=== PATIENT | female | born 1945 | race African-American/Black ===

== ENCOUNTER 2017-05-14 05:51 | Inpatient (IN) | payer OTHER ==
[2017-05-01 09:14] LABS: URINE BILIRUBIN NEGATIVE (Negative); URINE BLOOD TRACE (Negative); URINE COLOR YELLOW; URINE GLUCOSE-RANDOM* NEGATIVE (Negative); URINE KETONES NEGATIVE (Negative); URINE LEUKOCYTES-REFLEX NEGATIVE (Negative); URINE PROTEIN (DIPSTICK) NEGATIVE (Negative); URINE SPECIFIC GRAVITY 1.015 (1.003-1.035); URINE UROBILINOGEN 0.2 E.U./dl (0.2-1.0)
[2017-05-01 09:18] LABS: HEMATOCRIT 44.1 % (37.0-47.0); HEMOGLOBIN 15.2 gm/dL (12.0-15.0); MCH 31.4 pg (26.0-34.0); MCHC 34.5 g/dL (28.0-37.0); MCV 91.1 fL (80.0-100.0); RBC 4.84 mil/uL (4.20-5.00); RDW 13.4 % (10.5-14.5)
[2017-05-01 09:27] LABS: ALBUMIN 3.9 g/dL (3.4-5.0); CALCIUM 9.6 mg/dL (8.5-10.1); CREATININE 0.8 mg/dL (0.6-1.0); POTASSIUM 3.9 mmol/L (3.5-5.1)
[2017-05-01 09:30] LABS: PROTIME 9.9 Seconds (9.3-11.4)
[2017-05-14] VITALS (11 sets, daily range): BP systolic 100–129; BP diastolic 46–83
[~2017-05-14] VITALS: Ht 157.5 cm; Wt 70.3 kg
--- NOTE | ~2017-05-14 | O ---
[facility] [place] [address] OPERATIVE REPORT Name: ANGELA VERGARA Room #: 150-4 ADM IN M.R.#: [id number] Admission: 05/14/17 Attend Phys: Fish Gusman MD Discharge: Date of : 49 Report #: [id number] THIS REPORT FOR: //name// CC: Fish Tran MD DATE OF OPERATION: 05/14/2017. PREOPERATIVE DIAGNOSIS: Right hip degenerative joint disease, severe. POSTOPERATIVE DIAGNOSIS: Right hip degenerative joint disease, severe. PROCEDURE: Right total hip arthroplasty. SURGEON: Dr. Fish Gusman. WOODWORKING MACHINE OFFBEARER: JORDON Patel. ANESTHETIC: General. INDICATIONS: See hospital history and physical. IMPLANTS UTILIZED: Shellie hip system Secur-Fit Max stem number size 7. We used a size +0, 32 outer diameter ceramic head. We used a Tritanium solid back shell with a Trident X3 elevated rim insert. DESCRIPTION OF PROCEDURE: After adequate general anesthesia had been obtained, the patient was placed in lateral decubitus position, right hip up. Right hip and lower extremity was prepped and draped in the usual meticulous sterile fashion. Posterolateral incision was made, subQ divided sharply. Hemostasis obtained with electrocautery. The IT band gluteal fascia was divided. This layer was retracted with a Charnley retractor. Hip was gently rotated. The piriformis and external rotators were detached at their insertion, tagged and retracted posteriorly. Capsular incision was made and the capsule flap was elevated posteriorly. Hip was dislocated. Soft tissue removed from the base of neck. Starter awl placed at the base of neck and advanced to the canal. Canal was sequentially reamed to a size 7. Neck osteotomy performed. At this time, attention was directed to the acetabulum, was circumferentially exposed. Labrum was excised and acetabulum was sequentially reamed to a size 48. We got a good press fit with a 48 trial, so we reamed to a 49, irrigated copiously and placed a 50 shell in the appropriate orientation. Cap screw was placed. The liner was placed, elevated the portion posteriorly. Attention was redirected to the femur, sequentially broached to a size 7, a good torsional stability was obtained. We trialed reduced her with a +0 neck length [facility] [address] [place] [address] OPERATIVE REPORT Name: ANGELA VERGARA Angy Room #: 150-4 [facility] IN M.R.#: [id number] Admission: 05/14/17 Attend Phys: Fish Gusman MD Discharge: Date of : 49 Report #: [id number] and good reproduction for her leg lengths and excellent stability parameters, the hip was then dislocated. The trial components were removed. The wound was irrigated copiously. The stem implant into place and the head, impacted in place and the hip was reduced. We then repaired the capsule and external rotators to the trochanter by placing drill hole in trochanter and tying them over a bone bridge. We then irrigated copiously, placed drains deep and superficial and IT band and gluteal fascia layer closed with combination of interrupted [id number]-[id number] #1 Vicryl as well as running #1 Tevdek. SubQ closed in layers with 2-0 Monocryl, skin closed with sarthak. Sterile compressive dressing was applied. By: [id number] Fish Gusman MD /nt
--- NOTE | ~2017-05-14 | EKG ---
[address] [address] ELECTROCARDIOGRAM REPORT Name: ANGELA VERGARA Room #: PRE IN [facility]#: [id number] Admission: Attend Phys: Fish Gusman MD Discharge: Date of : 49 Report #: [id number] THIS REPORT FOR: //name// [facility] Test Date: 2017-05-01 Test Time: 09:23:13 Pat Name: ANGELA VERGARA Department: Room: Gender: F First Aid Director: lindsey hudson : 1945 Requested By: Fish Gusman Order Number: [id number] MD: Cirilo Garrett Measurements Intervals [place] Rate: 61 P: 44 W[place]: 205 QRS: 23 QRSD: 92 T: -11 QT: 403 QTc: 406 Interpretive Statements Sinus rhythm Nonspecific ST segment abnormality No previous ECG available for comparison Electronically Signed On 05-01-2017 18:28:36 CDT by Cirilo Garrett [email or web address] <ELECTRONICALLY SIGNED> By: Cirilo Garrett MD, [facility] 05/01/17 1828 0923 2 Cirilo Garrett MD, [facility] /EPI
[~2017-05-14 05:51] MED LIST: ALEVE220 MG PO; APAP500 PO; ATENOLOL 100MG100 MG PO; ATIVAN1 MG PO; ATROVENT HFA14 GM INH; BENAZEPRIL HCL40 MG PO; HYDROCHLOROTHIAZIDE PORT; IBUPROFEN 200200 M1 PO; KLOR-CON 1010 MEQ PO; NORVASC10 MG PO; OMEPRAZOLE20 M1 PO; SIMVASTATIN40 MG PO; VITAMIN D250000 UNIT PO
[2017-05-15] VITALS: BP 113/51
[2017-05-15 04:45] VITALS: BP 112/54
[2017-05-15 05:23] LABS: HEMOGLOBIN 12.8 gm/dL (12.0-15.0); MCH 30.7 pg (26.0-34.0); MCHC 33.5 g/dL (28.0-37.0); MCV 91.7 fL (80.0-100.0); RBC 4.15 mil/uL (4.20-5.00); RDW 13.2 % (10.5-14.5); WBC 11.8 thou/uL (4.0-11.0)
[2017-05-15 08:50] VITALS: BP 100/52
[2017-05-15 12:06] VITALS: BP 100/52
[2017-05-15 19:04] VITALS: BP 130/58
[2017-05-16 04:40] VITALS: BP 136/56
[2017-05-16 06:13] LABS: HEMATOCRIT 36.8 % (37.0-47.0); HEMOGLOBIN 12.7 gm/dL (12.0-15.0); MCH 31.6 pg (26.0-34.0); MCHC 34.6 g/dL (28.0-37.0); MCV 91.2 fL (80.0-100.0); RBC 4.03 mil/uL (4.20-5.00); RDW 13.3 % (10.5-14.5); WBC 13.4 thou/uL (4.0-11.0)
[2017-05-16 08:21] VITALS: BP 134/54
[2017-05-16] MEDS ORDERED: XARELTO10 MG PO (09:22)
[2017-05-16 10:22] VITALS: BP 100/52
[2017-05-16 10:43] VITALS: BP 100/52
== END 2017-05-16 12:58 | disposition home health service (06) | DRG 470 ==
LOC: EDBD → PRE → TBA 08:37 → 4N 08:37 → PRE 09:33 → 4N 12:48
PROVIDERS: Orthopaedic Surgery
PROC: 0SR904Z Replacement of Right Hip Joint with Ceramic on Polyethylene Synthetic Substitute, Open Approach (ICD-10-PCS; principal; 2017-05-14)
DX: M16.11 Unilateral primary osteoarthritis, right hip (principal); I10 Essential (primary) hypertension; Z96.642 Presence of left artificial hip joint; F17.200 Nicotine dependence, unspecified, uncomplicated; Z88.0 Allergy status to penicillin; Z82.49 Family history of ischemic heart disease and other diseases of the circulatory system; Z83.3 Family history of diabetes mellitus; Z80.8 Family history of malignant neoplasm of other organs or systems; Z80.0 Family history of malignant neoplasm of digestive organs; Z82.3 Family history of stroke
CPT/HCPCS: 10790; 50010; 50101; 50382; 50414; 50455; 50855; 51412; 51771; 53000; 56521; 56525; 56527; 56530; 57095; 62110; 62900; 70005

== ENCOUNTER 2017-05-19 10:02 | Emergency (ER) | payer OTHER ==
[~2017-05-19] VITALS: Ht 157.5 cm; Wt 68.0 kg
[~2017-05-19 10:02] MED LIST changes: +XARELTO10 MG PO
== END 2017-05-19 11:21 | disposition home or self-care (01) ==
LOC: ER 10:02
DX: R60.0 Localized edema (principal); G89.18 Other acute postprocedural pain; I10 Essential (primary) hypertension; E78.00 Pure hypercholesterolemia, unspecified; F10.99 Alcohol use, unspecified with unspecified alcohol-induced disorder; Z90.710 Acquired absence of both cervix and uterus; Z96.652 Presence of left artificial knee joint; Z90.89 Acquired absence of other organs; Z96.641 Presence of right artificial hip joint; Z88.0 Allergy status to penicillin